=== PATIENT | female | born 1950 | race Caucasian/White ===

== ENCOUNTER 2017-12-29 12:23 | Day surgery (SDC) | payer MEDICARE, OTHER, SELFPAY ==
[2017-12-29] VITALS (7 sets, daily range): BP systolic 95–150; BP diastolic 60–76; PULSE 62–93; RESP 16–18; TEMP 36.1–36.2; O2SAT 93–99; BMI 21.2
--- NOTE | 2017-12-29 13:07 | SUR.PREOP ---
pt stopped supplements 5 days ago
[2017-12-29] MEDS: SODIUM CHLORIDE 0.9% 1,000 ML 42 ML IV (13:08)
--- NOTE | 2017-12-29 13:51 | PM.HP.1 ---
History of Present Illness Date Patient Seen: 12/29/17 Time Patient Seen: 13:51 Chief complaint: [id number] Narrative: Colorectal cancer screening Patient History Family & Social History Social History: household members none Meds Home Medications Medication Instructions Recorded Confirmed Type hydrocortisone 2.5 % TOPICAL PRN #0 02/25/12 12/29/17 History [BIOIDENTICAL PROGEST] 2 mg PO HS #0 10/09/15 12/29/17 History [MAGNESIUM CITRATE] 650 mg PO QDAY #0 10/09/15 History epinephrine 0.3 mg IJ SEE INSTRUCT #2 ea 03/11/17 12/29/17 Rx albuterol sulfate [Proventil HFA] 2 puff INH Q4-6HP PRN 12/29/17 12/29/17 History fexofenadine [Susana Allergy] 30 mg PO BID 12/29/17 12/29/17 History Allergies Allergy/AdvReac Type Severity Reaction Status Date / Time tree nut [TREE NUT] Allergy Severe ANAPHYLACTIC Unverified 12/29/17 13:03 SHOCK, BUT I CAN EAT ALMONDS & PEANUTS Exam Vital Signs (past 8 hours): - 12/29/17 12:55 Temperature 97.0 F L Pulse Rate 67 Respiratory Rate 18 Blood Pressure 150/76 H Pulse Oximetry 99 Oxygen Delivery Method Room Air Narrative Exam Narrative: Oropharynx free of lesion Chest clear to auscultation percussion Cardiac exam reveals no S3 or murmur Assessment & Plan Plan: Assessment/Plan Narrative: Colorectal cancer screening need for colonoscopy
--- NOTE | 2017-12-29 14:01 | PM.OP.ENDO ---
Operative Date/Time/Diagnoses Date of procedure: 12/29/17 Time of procedure: 14:01 Pre-op diagnosis: See indication and findings Post-op diagnosis: same Procedure & Clinicians Study performed: Colonoscopy Same procedure as scheduled: Yes Indications: Screening Surgeon: Sintia Humphrey Procedure Notes Procedure in detail: After informed consent was obtained the patient was placed on left lateral decubitus position. The video colonoscope was introduced the rectum slowly advanced to the cecum. On slow withdrawal mucosa was carefully examined. Scope was removed. The patient tolerated the procedure well. Blood loss none Complications none Sedation: Fentanyl 150 mcg Versed 7 mg IV titration Total sedation time 20 min Findings 1. Mild melanosis in the left colon. 2. Otherwise negative colonoscopy to cecum Patient will need follow-up colonoscopy in 10 years.
[2017-12-29] MEDS: MIDAZOLAM 5 MG/5 ML VIAL IV (14:32)
[2017-12-29] MEDS: fentaNYL 250 MCG/5 ML INJ IV (14:32)
== END 2017-12-29 15:30 ==
LOC: ENDO 12:26
PROVIDERS: Family Provider Physician Assistant; PCP Physician Assistant; Visit Provider Internal Medicine Gastroenterology
PROC: 0DJD8ZZ Inspection of Lower Intestinal Tract, Via Natural or Artificial Opening Endoscopic (ICD-10-PCS; CPT 45378; principal; 2017-12-29 13:30)
DX: Z12.11 Encounter for screening for malignant neoplasm of colon (principal)
CPT/HCPCS: G0121; J2250; J3010

== ENCOUNTER → 2018-12-13 12:00 | Outpatient (CLI) | payer MEDICARE, OTHER, SELFPAY ==
--- NOTE | 2018-12-13 | DI.MG.S_ITS ---
BILATERAL DIGITAL SCREENING MAMMOGRAM 3D/2D WITH CAD: 12/13/2018 CLINICAL: Routine screening. Family history of breast cancer. Comparison is made to exams dated: 12/17/2016 mammogram, 11/22/2015 mammogram, and 09/13/2012 mammogram - [facility]. There are scattered fibroglandular elements in both breasts. Current study was also evaluated with a Computer Aided Detection (CAD) system. There are benign vascular calcifications in both breasts. No significant masses, calcifications, or other findings are seen in either breast. There has been no significant interval change. IMPRESSION: There is no mammographic evidence of malignancy. A 1 year screening mammogram is recommended. This exam was interpreted at Station ID: [id number]. NOTE: For mammograms, a report in lay terms will be sent to the patient. Approximately 15% of breast malignancies will not be visualized mammographically. In the management of a palpable breast mass, a negative mammogram must not discourage biopsy of a clinically suspicious lesion. Electronically Signed By: Elvie jimenez/vanessa:12/13/2018 12:36:41 letter sent: Normal Exam ACR BI-RADS Category 2: Benign Finding(s) 3342F
== END ==
PROVIDERS: Family Provider Physician Assistant; PCP Physician Assistant; Visit Provider Physician Assistant
DX: Z12.31 Encounter for screening mammogram for malignant neoplasm of breast (principal); Z80.3 Family history of malignant neoplasm of breast; Z13.820 Encounter for screening for osteoporosis; M85.88 Other specified disorders of bone density and structure, other site; Z78.0 Asymptomatic menopausal state; Z87.891 Personal history of nicotine dependence
CPT/HCPCS: 77063; 77067; 77080

== ENCOUNTER → 2020-10-29 08:02 | Outpatient (CLI) | payer MEDICARE, OTHER, SELFPAY ==
[2020-10-29 09:20] LABS: COVID19 -Nasal RAPID Negative (Negative)
== END ==
PROVIDERS: Family Provider Physician Assistant; PCP Nurse Practitioner Family; Referring Provider Physician Assistant; Visit Provider Physician Assistant
DX: Z20.822 Contact with and (suspected) exposure to COVID-19 (principal); J02.9 Acute pharyngitis, unspecified; R51.9 Headache, unspecified
CPT/HCPCS: 87635

== ENCOUNTER → 2021-02-21 10:38 | Outpatient (CLI) | payer MEDICARE, OTHER, SELFPAY ==
--- NOTE | 2021-02-21 | DI.MG.S_ITS ---
BILATERAL DIGITAL SCREENING MAMMOGRAM 3D/2D WITH CAD: 02/21/2021 CLINICAL: Routine screening. Family history of breast cancer. Comparison is made to exams dated: 12/13/2018 mammogram, 12/17/2016 mammogram, and 11/22/2015 mammogram - [facility]. There are scattered fibroglandular elements in both breasts. Current study was also evaluated with a Computer Aided Detection (CAD) system. There is a benign mass in the right breast. There also are benign vascular calcifications in both breasts. No significant masses, calcifications, or other findings are seen in either breast. There has been no significant interval change. IMPRESSION: BENIGN There is no mammographic evidence of malignancy. A 1 year screening mammogram is recommended. This exam was interpreted at Station ID: [id number]. NOTE: For mammograms, a report in lay terms will be sent to the patient. Approximately 15% of breast malignancies will not be visualized mammographically. In the management of a palpable breast mass, a negative mammogram must not discourage biopsy of a clinically suspicious lesion. Electronically Signed By: Renan plaza/vanessa:02/21/2021 12:46:45 letter sent: Normal Exam ACR BI-RADS Category 2: Benign Finding(s) 3342F
== END ==
PROVIDERS: Family Provider Physician Assistant; Referring Provider Nurse Practitioner Family; Visit Provider Nurse Practitioner Family
DX: Z12.31 Encounter for screening mammogram for malignant neoplasm of breast (principal); Z80.3 Family history of malignant neoplasm of breast
CPT/HCPCS: 77063; 77067

== ENCOUNTER → 2021-05-15 09:11 | Outpatient (CLI) | payer MEDICARE, OTHER, SELFPAY ==
[2021-05-15 10:25] LABS: Add Manual Diff / Slide Review NO; Basophils Absolute Auto 100 /uL (0-100); Basophils Percent Auto 1.3 % (0-2); Eosinophils Absolute Auto 100 /uL (0-450); Eosinophils Percent Auto 2.1 % (2-4); Hematocrit 39.6 % (36-46); Hemoglobin 13.1 g/dL (12.0-16.0); Lymphocytes Absolute Auto 2000 /uL (1100-4500); Lymphocytes Percent Auto 36.2 % (25-40); Mean Corpuscular HGB Conc 33.2 % (30-36); Mean Corpuscular Volume 93.5 fL (80-100); Monocytes Absolute Auto 300 /uL (0-900); Monocytes Percent Auto 5.2 % (3-14); Neutrophils Absolute Auto 3100 /uL (1500-7000); Neutrophils Percent Auto 55.2 % (50-75); Platelet Count 306 X10^3/uL (150-400); Red Blood Cell Count 4.23 X10^6/uL (4.0-5.2); Red Cell Distribution Width 12.2 % (11.6-14.8); White Blood Cell Count 5.7 X10^3/uL (4.5-11.0)
[2021-05-15 10:39] LABS: Alanine Aminotransferase 26 IU/L (<35); Albumin 4.6 g/dL (3.5-5.0); Albumin Globulin Ratio 1.4 (1.0-2.8); Alkaline Phosphatase 61 U/L (38-126); Aspartate Aminotransferase 36 IU/L (14-36); BUN Creatinine Ratio 26.9 (6-22); Bilirubin Total 0.5 mg/dL (0.2-1.3); Blood Urea Nitrogen 18 mg/dL (7-17); Calcium 9.7 mg/dL (8.4-10.2); Carbon Dioxide 26 mmol/L (22-32); Chloride 107 mmol/L (98-107); Cholesterol 223 mg/dL (140-199); Estimated Glomerular Filt Rate > 60.0 mL/min (>60); Globulin 3.3 g/dL (1.7-4.1); Glucose 108 mg/dL (80-110); HDL Cholesterol 54 mg/dL (40-60); HEMOLYSIS 28 (0-50); LDL Cholesterol Calculated 143 mg/dL (<100); Potassium 4.1 mmol/L (3.4-5.1); Sodium 137 mmol/L (137-145); Total Protein 7.9 g/dL (6.3-8.2); Triglycerides 128 mg/dL (35-150)
== END ==
PROVIDERS: Family Provider Physician Assistant; PCP Family Medicine; Referring Provider Family Medicine; Visit Provider Family Medicine
DX: E78.5 Hyperlipidemia, unspecified (principal); N95.2 Postmenopausal atrophic vaginitis; L43.9 Lichen planus, unspecified; L85.3 Xerosis cutis; J45.909 Unspecified asthma, uncomplicated
CPT/HCPCS: 36415; 80053; 80061; 84443; 85025

== ENCOUNTER → 2021-10-27 09:56 | Outpatient (CLI) | payer MEDICARE, OTHER, SELFPAY ==
--- NOTE | 2021-10-27 09:59 | DI.RAD.S_ITS ---
PROCEDURE: XR CHEST 2V INDICATIONS: asthma, covid jessica, chronic cough, crackles left base, atel? TECHNIQUE: 2 views of the chest were acquired. COMPARISON: [facility], , CHEST 2 VIEW, 06/16/2006, 15:56. FINDINGS: Surgical changes and devices: None. Lungs and pleura: Lungs are clear. No pleural effusions or pneumothorax. Mediastinum: Mediastinal contours are normal. Heart size is normal. Bones and chest wall: No suspicious bony abnormalities. Soft tissues appear unremarkable. IMPRESSION: No acute radiographic abnormality. Dictated by: Matthew García M.D. on 10/27/2021 at 10:59 Approved by: Matthew García M.D. on 10/27/2021 at 11:00
== END ==
PROVIDERS: Family Provider Physician Assistant; PCP Family Medicine; Referring Provider Pediatrics; Visit Provider Pediatrics
DX: J45.909 Unspecified asthma, uncomplicated (principal); R05.3 Chronic cough; U09.9 Post COVID-19 condition, unspecified
CPT/HCPCS: 71046

== ENCOUNTER → 2022-06-26 09:51 | Outpatient (CLI) | payer MEDICARE, OTHER, SELFPAY ==
--- NOTE | 2022-06-26 09:53 | DI.RAD.S_ITS ---
PROCEDURE: XR HIP W PEL IF DONE RAJNI MIN 4V INDICATIONS: pain TECHNIQUE: AP pelvis with lateral view(s) of the both hip(s). COMPARISON: None. FINDINGS: Bones: No fractures or dislocations. Pelvic ring appears intact. No suspicious bony lesions. Soft tissues: The visualized bowel gas pattern is normal. No suspicious soft tissue calcifications. IMPRESSION: Mild bilateral hip DJD. Dictated by: Jonathon Gifford M.D. on 06/26/2022 at 11:52 Approved by: Jonathon Gifford M.D. on 06/26/2022 at 11:53
== END ==
PROVIDERS: Family Provider Physician Assistant; PCP Family Medicine; Referring Provider Family Medicine; Visit Provider Family Medicine
DX: M25.552 Pain in left hip (principal); M16.0 Bilateral primary osteoarthritis of hip
CPT/HCPCS: 73522

== ENCOUNTER → 2023-02-23 16:57 | Outpatient (CLI) | payer MEDICARE, OTHER, SELFPAY ==
--- NOTE | 2023-02-23 | DI.MG.S_ITS ---
BILATERAL DIGITAL SCREENING MAMMOGRAM 3D/2D WITH CAD: 02/23/2023 CLINICAL: Routine screening. Family history of breast cancer. Comparison is made to exams dated: 02/21/2021 mammogram, 12/13/2018 mammogram, and 12/17/2016 mammogram - [facility]. There are scattered areas of fibroglandular density in both breasts (category b / 25%-50% glandular tissue). Current study was also evaluated with a Computer Aided Detection (CAD) system. There is a benign mass in the right breast. There also are benign calcifications in the left breast. Additionally, there are benign vascular calcifications in both breasts. Additionally, there also are benign post operative findings in the right breast. No significant masses, calcifications, or other findings are seen in either breast. There has been no significant interval change. IMPRESSION: BENIGN There is no mammographic evidence of malignancy. A 1 year screening mammogram is recommended. Based on the Tyrer Cuzick model (a risk assessment model) the patient's lifetime risk is 11.7% and her 10 year risk is 7.5%. According to the ACR, ACS, and NCCN guidelines, an annual breast MRI exam along with mammogram is recommended if the patient's lifetime risk is 20% or greater. This exam was interpreted at Station ID: [id number]. NOTE: For mammograms, a report in lay terms will be sent to the patient. Approximately 15% of breast malignancies will not be visualized mammographically. In the management of a palpable breast mass, a negative mammogram must not discourage biopsy of a clinically suspicious lesion. Electronically Signed By: Jonathon Gifford M.D. [facility]/:02/24/2023 15:55:41 letter sent: Normal Exam ACR BI-RADS Category 2: Benign Finding(s) 3342F
== END ==
PROVIDERS: Family Provider Physician Assistant; PCP Family Medicine; Referring Provider Family Medicine; Visit Provider Family Medicine
DX: Z12.31 Encounter for screening mammogram for malignant neoplasm of breast (principal); Z80.3 Family history of malignant neoplasm of breast
CPT/HCPCS: 77063; 77067

== ENCOUNTER → 2023-03-02 13:23 | Outpatient (CLI) | payer MEDICARE, OTHER, SELFPAY ==
--- NOTE | 2023-03-02 13:27 | DI.RAD.S_ITS ---
PROCEDURE: XR WRIST RT MIN 3V INDICATIONS: right and left wrist pain TECHNIQUE: 3 views of the wrist were acquired. COMPARISON: None. FINDINGS: Bones: No fractures or dislocations. 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 Decreased osseous mineralization. No suspicious bony lesions. Soft tissues: No suspicious soft tissue calcifications. IMPRESSION: No acute bony abnormality. 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 Dictated by: Kelby Cordova M.D. on 03/03/2023 at 9:11 Approved by: Kelby Cordova M.D. on 03/03/2023 at 9:12
--- NOTE | 2023-03-02 13:27 | DI.RAD.S_ITS ---
PROCEDURE: XR WRIST LT MIN 3V INDICATIONS: right and left wrist pain TECHNIQUE: 3 views of the wrist were acquired. COMPARISON: [facility], CR, XR WRIST RT MIN 3V, 03/02/2023, 14:32. FINDINGS: Bones: No fractures or dislocations. 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 Decreased osseous mineralization. No suspicious bony lesions. Soft tissues: No suspicious soft tissue calcifications. IMPRESSION: No acute bony abnormality. 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 Dictated by: Kelby Cordova M.D. on 03/03/2023 at 9:12 Approved by: Kelby Cordova M.D. on 03/03/2023 at 9:13
== END ==
PROVIDERS: Family Provider Physician Assistant; PCP Family Medicine; Referring Provider Naturopath; Visit Provider Naturopath
DX: M25.531 Pain in right wrist (principal); M25.532 Pain in left wrist
CPT/HCPCS: 73110

== ENCOUNTER → 2023-04-28 06:47 | Outpatient (CLI) | payer MEDICARE, OTHER, SELFPAY ==
--- NOTE | 2023-04-28 06:48 | DI.US.S_ITS ---
PROCEDURE: US SOFT TISSUE HEAD AND NECK INDICATIONS: lt side of face swollen gland TECHNIQUE: Real-time scanning was performed of the neck region of interest, with image documentation. COMPARISON: None. FINDINGS: Unremarkable soft tissue at the area of concern in left face. Muscular and fascial planes are maintained. Unremarkable vascularity. IMPRESSION: Unremarkable soft tissue ultrasound Approved by: Erich Ayala M.D. on 04/28/2023 at 18:22
== END ==
LOC: US 06:47
PROVIDERS: Family Provider Physician Assistant; PCP Family Medicine; Referring Provider Family Medicine; Visit Provider Family Medicine
DX: R59.9 Enlarged lymph nodes, unspecified (principal)
CPT/HCPCS: 76536

== ENCOUNTER 2024-04-08 08:58 | Emergency (ER) | payer MEDICARE, OTHER, SELFPAY ==
--- NOTE | 2024-04-08 08:59 | ED_ITS ---
HPI - SOB/Dyspnea General Chief Complaint: Shortness of Breath/Dyspnea Stated Complaint: sent from [facility], SOB congestion Time Seen by Provider: 04/08/24 08:59 History of Present Illness HPI Narrative: Patient past medical history of asthma comes into the ED from home for evaluation of asthma exacerbation. States that she normally only gets asthma exacerbations whenever she gets sick, states that she was having a chest congestion started proximally 5 days ago states that she took a home COVID test which was negative but had persistent wheezing shortness of breath went to the walk-in clinic and was told to come here to the ED for further evaluation treatment. She denies any actual chest tightness chest pain she denies any other symptoms as headache visual disturbances nausea vomiting abdominal pain or any other GI/ symptoms time. No recent travel no known sick contacts Related Data Home Medications Medication Instructions Recorded Confirmed Berberine PO 10/10/20 01/14/24 COQ10 PO 10/10/20 01/14/24 Curcum-eval PO 10/10/20 01/14/24 Fish Oil PO 10/10/20 01/14/24 K2-7D3 PO 10/10/20 01/14/24 Multi Vitamin PO 10/10/20 01/14/24 Probiotic PO 10/10/20 01/14/24 Quercetin PO 10/10/20 01/14/24 Vitamin E PO 10/10/20 01/14/24 nac acetalyLCysteine PO 10/10/20 01/14/24 progesterone micronized (bulk) 100 ea miscellaneous 04/08/24 04/08/24 % powder Previous Rx's Medication Instructions Recorded Oral Appliance #1 ea 04/28/21 epinephrine 0.3 mg/0.3 mL 0.3 mg (0.3 mL) SUBCUT SEE 04/26/23 injection, auto-injector INSTRUCT #2 ea albuterol sulfate 90 mcg/actuation 2 puff inhalation Q4-6HP PRN Cold 05/04/23 aerosol inhaler (Proventil HFA) Symptoms #8.5 grams beclomethasone dipropionate 80 2 inh inhalation BID #10.6 grams 05/04/23 mcg/actuation HFA breath activated aerosol (Qvar RediHaler) albuterol sulfate 90 mcg/actuation 3 inh inhalation Q4-6H PRN 04/08/24 breath activated powder inhaler shortness of breath or wheezing #1 ea prednisone 20 mg tablet 40 mg (2 x 20 mg) PO BID 5 days 04/08/24 #20 tabs Allergies Allergy/AdvReac Type Severity Reaction Status Date / Time tree nut [TREE NUT] Allergy Severe ANAPHYLACTIC Verified 04/08/24 09:14 SHOCK, BUT I CAN EAT ALMONDS & PEANUTS Review of Systems Review of Systems Narrative: General: Denies fever, chills, weight loss HEENT: Denies headache, eye drainage, eye irritation, head trauma, sore throat, voice change Cardiovascular: Denies any chest pain, palpitations, shortness of breath, tachycardia Respiratory: Positive shortness breath, cough, wheeze GI/: Denies any abdominal pain, nausea, vomiting, diarrhea, bright red blood per rectum, melanotic stools, urinary frequency, urinary retention, dysuria, hematuria MSK: Denies any joint pain, muscle pains, swelling Skin: Denies any rashes, lesions, discoloration Neuro: Denies any headache, lightheadedness, dizziness, fainting, weakness Psych: Denies SI/HI Patient History Medical History (Updated 04/08/24 @ 10:28 by Justus Dukes DO) Right elbow pain Flexor carpi ulnaris tendinitis Piriformis muscle pain Groin pain, chronic, left Costochondritis, acute Short leg syndrome, left, acquired Hip pain Dupuytren's contracture of left hand Chronic pain of right lower extremity Acute low back pain Active asthma Post-COVID chronic cough Somatic dysfunction of lower extremity Left thigh pain Acute thoracic back pain Acute sore throat Upper extremity somatic dysfunction Segmental and somatic dysfunction of rib cage Bilateral wrist pain Head pain Chronic left-sided thoracic back pain Sacral region somatic dysfunction Pelvic somatic dysfunction Lumbar region somatic dysfunction Segmental and somatic dysfunction of abdomen and other regions Thoracic region somatic dysfunction Back stiffness Neck stiffness Cervical somatic dysfunction Cranial somatic dysfunction Left-sided temporomandibular joint pain-dysfunction syndrome Dry skin Lichen planus Obstructive sleep apnea, adult (Unknown) Primary insomnia (Unknown) Fatigue due to sleep pattern disturbance Excessive daytime sleepiness (Unknown) Hypertension, essential, benign Upper respiratory infection Wrist pain Snoring Left ankle sprain Nut allergy Family history of cardiac disorder Family history of diabetes mellitus in mother Social History (Updated 11/15/23 @ 10:38 by Nighat Morris LPN) marital status: household members: none occupational status: other (retired) Smoking Status: Former smoker Smoking Status: Former smoker (1 pack/week for limited time 40 years ago) Exam Narrative Exam Narrative: General: Cooperative, comfortable, well-developed, not in acute distress HEENT: Normocephalic, atraumatic, PERRLA, normal sclera, eyelids normal, Neck: Active full range of motion, atraumatic Chest: Normal to inspection, negative crepitus, no overlying erythema ecchymosis Respiratory: Patient coughing on exam, expiratory wheezes bilaterally anterior- posterior diffuse, however patient is speaking full sentences protecting airway stridor no voice change no trismus Cardiology: Regular rate rhythm negative gallop, murmur, rubs GI/: Normal to inspection, soft, nonrigid, no tenderness to palpation, exam deferred MSK: Full range of active range of motion of all 4 extremities, atraumatic Skin: No rashes lesions noted Neuro: Alert awake oriented x3, moves all 4 extremities spontaneously, cranial nerves intact, able to answer all questions appropriately follows commands appropriately Psych: Cooperative, negative suicidal or homicidal ideations Initial Vital Signs Initial Vital Signs: Vital Signs Pulse Rate 98 H 04/08/24 09:01 Pulse Oximetry 92 04/08/24 09:01 Course Orders Ordered: ED Orders 04/08/24 09:02 CXR [XR chest 1V] Stat 04/08/24 09:20 BMP [Basic Metabolic Panel] Stat CBC Auto Diff [Complete Blood Count AUTO DIFF] Stat Covid-19 + FLU A/B + RSV - PCR Stat Discontinued Medications Albuterol (Albuterol 2.5 Mg/3 Ml Neb (Adult)) 2.5 mg INH NOW ONE Stop: 04/08/24 09:01 Last Admin: 04/08/24 09:20 Dose: 2.5 mg Documented By: QUENTIN Albuterol/Ipratropium (Albuterol/Ipratropium 3 Ml Ampul) 3 ml INH NOW ONE Stop: 04/08/24 09:01 Last Admin: 04/08/24 09:20 Dose: 3 ml Documented By: QUENTIN Magnesium Sulfate (Magnesium Sulfate) 2 gm in 50 mls @ 150 mls/hr IV NOW ONE Stop: 04/08/24 09:19 Last Infusion: 04/08/24 09:52 Dose: Infused Documented By: RB Co-signed By: LILLIAM Admin: 04/08/24 09:27 Dose: 150 mls/hr Documented By: LILLIAM Co-signed By: DAMIEN Methylprednisolone (Methylprednisolone 125 Mg/2 Ml Vial) 125 mg IV NOW ONE Stop: 04/08/24 09:01 Last Admin: 04/08/24 09:27 Dose: 125 mg Documented By: LILLIAM Vital Signs Vital signs: Vital Signs - 8 hr 04/08/24 09:01 04/08/24 09:02 04/08/24 09:02 Temperature Pulse Rate 98 H 93 H Respiratory Rate Blood Pressure 152/71 H Pulse Oximetry 92 94 Oxygen Delivery Method 04/08/24 09:11 04/08/24 09:20 04/08/24 09:30 Temperature 98.4 F Pulse Rate 94 H 84 86 Respiratory Rate 22 20 Blood Pressure 152/71 H Pulse Oximetry 93 98 96 Oxygen Delivery Method Room Air Room Air 04/08/24 09:30 Temperature Pulse Rate 89 Respiratory Rate 20 Blood Pressure Pulse Oximetry 98 Oxygen Delivery Method Room Air MDM - SOB/Dyspnea Differential Diagnosis Differential diagnosis: Likely other (Pneumonia, COVID, flu, asthma exacerbation) Lab Data 04/08/24 09:20 04/08/24 09:20 Labs: Lab Results 04/08/24 Range/Units 09:20 WBC 6.4 (4.5-11.0) X10^3/uL RBC 4.03 (4.0-5.2) X10^6/uL Hgb 12.7 (12.0-16.0) g/dL Hct 37.7 (36-46) % MCV 93.4 (80-100) fL MCH 31.6 (26-34) PG MCHC 33.8 (30-36) % RDW 12.4 (11.6-14.8) % Plt Count 227 (150-400) X10^3/uL Neut % (Auto) 75.6 H (50-75) % Lymph % (Auto) 16.1 L (25-40) % Lares % (Auto) 6.9 (3-14) % Eos % (Auto) 0.7 L (2-4) % Baso % (Auto) 0.7 (0-2) % Neut # (Auto) 4800 (9919-0613) /uL Lymph # (Auto) 1000 L (1444-1734) /uL Lares # (Auto) 400 (0-900) /uL Eos # (Auto) 0 (0-450) /uL Baso # (Auto) 0 (0-100) /uL Sodium 134 L (137-145) mmol/L Potassium 3.8 (3.4-5.1) mmol/L Chloride 103 (98-107) mmol/L Carbon Dioxide 20 L (22-32) mmol/L BUN 19 H (7-17) mg/dL Creatinine 0.80 (0.52-1.04) mg/dL Estimated GFR > 60 (>60) mL/min BUN/Creatinine Ratio 23.8 H (6-22) Glucose 109 (80-110) mg/dL Calcium 9.5 (8.4-10.2) mg/dL SARS-CoV-2 (PCR) Negative (Negative) Influenza A (RT-PCR) Flu a positive H (NEGATIVE) Influenza B (RT-PCR) Flu b negative (NEGATIVE) RSV (PCR) Negative (Negative) Imaging Data Chest x-ray: Radiologist's Impression: [address] [address] XRay Report Signed Patient: Magdalena Mendez MR#: [id number] : 1950 Acct:[id number] Age/Sex: 73 / F Date of Service: 04/08/24 Loc: ED Accession Number: [id number] Procedure: XR chest 1V Ordering Provider: Justus Dukes D.O. PROCEDURE: XR CHEST 1V INDICATIONS: cough TECHNIQUE: One view of the chest was acquired. COMPARISON: [facility], , XR CHEST 2V, 10/27/2021, 10:00. FINDINGS: Surgical changes and devices: None. Lungs and pleura: Lungs are clear. No pleural effusions or pneumothorax. Mediastinum: Mediastinal contours appear normal. Heart size is normal. Bones and chest wall: No suspicious bony lesions. Overlying soft tissues appear unremarkable. IMPRESSION: No acute cardiopulmonary abnormality is seen. MDM Narrative Medical decision making narrative: 73-year-old female with a history of asthma presenting for asthma exacerbation. Has been ongoing and intermittent since Wednesday, went to the walk-in clinic but instructed to come into the ED for further evaluation treatment. Upon initial evaluation patient is speaking full sentences protecting airway however diffuse expiratory wheezes in all lung egan, patient was given Solu-Medrol, magnesium, albuterol, DuoNeb, chest x-ray was also performed. Patient found to be flu A positive Chest x-ray did not show any consolidation concerning for pneumonia. Patient with significant improvement of symptoms after administration of medications, not requiring any supplemental oxygen, patient feels safe going home with outpatient follow up she will be discharged home with albuterol inhaler as well as steroids informed to follow up with primary care doctor verbalized understanding of the screws being discharged home with outpatient follow up Discharge Plan Departure Patient Disposition: Home Clinical Impression: Asthma exacerbation, Influenza A Instructions: DI for Asthma -- Adult Activity Restrictions/Additional Instructions: Please read the discharge instructions sheet carefully and bring all papers to all doctor follow-up visits, as it may contain information that your doctor may want to see. Disease processes change and evolve, if your symptoms worsen or if you develop any new symptoms that are concerning to you please return for evaluation. Your evaluation today does not show any evidence of any life- threatening/serious illnesses requiring admission to the hospital or surgery. Please follow-up with your doctor for re-evaluation in approximately 1 day. Seek immediate medical attention for any worrisome symptoms. *If you do not have a primary care provider please contact the [facility] Resource line at [phone]. They will ask some questions about your medical history and help get you set up with a doctor in the community. Prescriptions: New prednisone 20 mg tablet 40 mg PO BID 5 Days Qty: 20 0RF albuterol sulfate 90 mcg/actuation aerosol powdr breath activated 3 inh inhalation Q4-6H PRN (Reason: shortness of breath or wheezing) Qty: 1 2RF No Action progesterone micronized (bulk) 100 % powder miscellaneous Patient Comments: [NO ORIGINAL SIG] (DME) Oral Appliance See Rx Instructions .Route .MEDSUPPLY Qty: 1 0RF Rx Instructions: Oral Appliance for Obstructive Sleep Apnea, Mild epinephrine 0.3 mg/0.3 mL auto-injector 0.3 mg subcut SEE INSTRUCT Qty: 2 1RF Rx Instructions: nut allergy albuterol sulfate [Proventil HFA] 90 mcg/actuation HFA aerosol inhaler 2 puff inhalation Q4-6HP PRN (Reason: Cold Symptoms) Qty: 8.5 2RF Qvar RediHaler 80 mcg/actuation HFA aerosol breath activated 2 inh inhalation BID Qty: 10.6 3RF Rx Instructions: usually used every day during allergy & asthma season for patient, or, at minimum, over perhaps the next 2 weeks as try to overcome current flare Fish Oil PO Probiotic PO nac acetalyLCysteine PO K2-7D3 PO Multi Vitamin PO COQ10 PO Curcum-eval PO Berberine PO Quercetin PO Vitamin E PO Referrals: Leon Estevez DO [Primary Care Provider] - Stand Alone Forms: Patient Portal/API/Survey
[2024-04-08 09:01] VITALS: PULSE 98; O2SAT 92
[2024-04-08 09:02] VITALS: BP 152/71; PULSE 93; O2SAT 94
--- NOTE | 2024-04-08 09:02 | DI.RAD.S_ITS ---
PROCEDURE: XR CHEST 1V INDICATIONS: cough TECHNIQUE: One view of the chest was acquired. COMPARISON: [facility], CR, XR CHEST 2V, 10/27/2021, 10:00. FINDINGS: Surgical changes and devices: None. Lungs and pleura: Lungs are clear. No pleural effusions or pneumothorax. Mediastinum: Mediastinal contours appear normal. Heart size is normal. Bones and chest wall: No suspicious bony lesions. Overlying soft tissues appear unremarkable. IMPRESSION: No acute cardiopulmonary abnormality is seen. Dictated by: Jonathon Gifford M.D. on 04/08/2024 at 10:18 Approved by: Jonathon Gifford M.D. on 04/08/2024 at 10:19
[2024-04-08 09:11] VITALS: BP 152/71; PULSE 94; RESP 22; TEMP 36.9; O2SAT 93; BMI 22.1
[2024-04-08 09:20] VITALS: PULSE 84; RESP 20; O2SAT 98
[2024-04-08] MEDS: ALBUTEROL 2.5 MG/3 ML NEB (ADULT) INH (09:20)
[2024-04-08] MEDS: ALBUTEROL/IPRATROPIUM 3 ML AMPUL INH (09:20)
[2024-04-08] MEDS: MAGNESIUM SULFATE 2 GM/50 ML PIGGYBACK IV (09:27)
[2024-04-08] MEDS: methylPREDNISolone 125 MG/2 ML VIAL IV (09:27)
[2024-04-08 09:30] VITALS: PULSE 86; PULSE 89; RESP 20; O2SAT 96; O2SAT 98
[2024-04-08 09:31] LABS: Add Manual Diff / Slide Review NO; Basophils Absolute Auto 0 /uL (0-100); Basophils Percent Auto 0.7 % (0-2); Eosinophils Absolute Auto 0 /uL (0-450); Eosinophils Percent Auto 0.7 % (2-4); Hematocrit 37.7 % (36-46); Hemoglobin 12.7 g/dL (12.0-16.0); Lymphocytes Absolute Auto 1000 /uL (1100-4500); Lymphocytes Percent Auto 16.1 % (25-40); Mean Corpuscular HGB Conc 33.8 % (30-36); Mean Corpuscular Hemoglobin 31.6 PG (26-34); Mean Corpuscular Volume 93.4 fL (80-100); Monocytes Absolute Auto 400 /uL (0-900); Monocytes Percent Auto 6.9 % (3-14); Neutrophils Absolute Auto 4800 /uL (1500-7000); Neutrophils Percent Auto 75.6 % (50-75); Platelet Count 227 X10^3/uL (150-400); Red Blood Cell Count 4.03 X10^6/uL (4.0-5.2); Red Cell Distribution Width 12.4 % (11.6-14.8); White Blood Cell Count 6.4 X10^3/uL (4.5-11.0)
[2024-04-08 09:42] LABS: BUN Creatinine Ratio 23.8 (6-22); Blood Urea Nitrogen 19 mg/dL (7-17); Calcium 9.5 mg/dL (8.4-10.2); Carbon Dioxide 20 mmol/L (22-32); Chloride 103 mmol/L (98-107); Estimated Glomerular Filt Rate > 60 mL/min (>60); Glucose 109 mg/dL (80-110); HEMOLYSIS < 15 (0-50); Potassium 3.8 mmol/L (3.4-5.1); Sodium 134 mmol/L (137-145)
[2024-04-08 10:00] LABS: Influenza A - CEPHEID Flu A POSITIVE (NEGATIVE); Influenza B - CEPHEID Flu B NEGATIVE (NEGATIVE); Respiratory Syncytial Virus Negative (Negative)
[2024-04-08 10:05] LABS: COVID-19 CEPHEID 4-PLEX PCR Negative (Negative)
--- NOTE | 2024-04-08 10:12 | RT ---
pt rosendo jenkins well, on room air with no distress noted.
--- NOTE | 2024-04-08 10:13 | RT ---
pt rosendo neb tx well, slight exp wheeze noted with improvement per pt.
[2024-04-08 10:42] VITALS: BP 148/68; PULSE 83; RESP 18; O2SAT 94
== END 2024-04-08 10:43 | disposition home or self-care (01) ==
PROVIDERS: Emergency Provider Student in an Organized Health Care Education/Training Program; Family Provider Physician Assistant; PCP Family Medicine
DX: J45.901 Unspecified asthma with (acute) exacerbation (principal); J10.1 Influenza due to other identified influenza virus with other respiratory manifestations; R06.02 Shortness of breath; Z86.16 Personal history of COVID-19; I10 Essential (primary) hypertension; G47.33 Obstructive sleep apnea (adult) (pediatric)
CPT/HCPCS: 0241U; 36415; 71045; 80048; 85025; 94640; 96365; 96375; 99284; J2919; J3475; J7613

== ENCOUNTER 2024-04-10 17:49 | Emergency (ER) | payer MEDICARE, OTHER, SELFPAY ==
[2024-04-10] VITALS (9 sets, daily range): BP systolic 128–155; BP diastolic 64–79; PULSE 72–96; RESP 12–33; TEMP 37; O2SAT 90–95; BMI 22.4
--- NOTE | 2024-04-10 18:24 | EKG_ITS ---
[address] [address] Test Date: 2024-04-10 Pat Name: Magdalena Mendez Department: [facility] Room: Gender: Female Customer Trainer: RAKESH : 1950 Requested By: Order Number: [id number] Reading MD: Justus Parmar Measurements Intervals [place] Rate: 76 P: 25 GA: 112 QRS: 33 QRSD: 66 T: 43 QT: 366 QTc: 411 Interpretive Statements Normal sinus rhythm Electronically Signed On 04-12-2024 23:44:38 PST by Justus Parmar
--- NOTE | 2024-04-10 18:24 | DI.RAD.S_ITS ---
PROCEDURE: XR CHEST 1V INDICATIONS: Shortness of breath TECHNIQUE: One view of the chest was acquired. COMPARISON: [facility], [facility], XR CHEST 1V, 04/08/2024, 9:09. [facility], CR, XR CHEST 2V, 10/27/2021, 10:00. FINDINGS: Surgical changes and devices: Cholecystectomy clips Lungs and pleura: No dense airspace disease or pleural effusions. Mediastinum: Normal heart size, unchanged Bones and chest wall: Degenerative changes IMPRESSION: No acute radiographic abnormality on this single view study. Dictated by: Matthew García M.D. on 04/10/2024 at 18:55 Approved by: Matthew García M.D. on 04/10/2024 at 18:55
[2024-04-10] MEDS: ALBUTEROL/IPRATROPIUM 3 ML AMPUL INH (18:46)
[2024-04-10 18:51] LABS: Add Manual Diff / Slide Review NO; Basophils Absolute Auto 100 /uL (0-100); Basophils Percent Auto 0.3 % (0-2); Eosinophils Absolute Auto 0 /uL (0-450); Hematocrit 38.5 % (36-46); Hemoglobin 12.8 g/dL (12.0-16.0); Lymphocytes Absolute Auto 1000 /uL (1100-4500); Lymphocytes Percent Auto 6.3 % (25-40); Mean Corpuscular HGB Conc 33.1 % (30-36); Mean Corpuscular Volume 93.7 fL (80-100); Monocytes Absolute Auto 900 /uL (0-900); Monocytes Percent Auto 5.8 % (3-14); Neutrophils Absolute Auto 13400 /uL (1500-7000); Neutrophils Percent Auto 87.6 % (50-75); Platelet Count 328 X10^3/uL (150-400); Red Blood Cell Count 4.11 X10^6/uL (4.0-5.2); Red Cell Distribution Width 12.6 % (11.6-14.8); White Blood Cell Count 15.3 X10^3/uL (4.5-11.0)
[2024-04-10 18:57] LABS: INR 0.8 (0.9-1.3); Prothrombin Time 9.4 SECONDS (9.4-12.5)
[2024-04-10 19:01] LABS: Albumin 4.5 g/dL (3.5-5.0); Albumin Globulin Ratio 1.3 (1.0-2.8); Alkaline Phosphatase 69 U/L (38-126); Aspartate Aminotransferase 68 IU/L (14-36); BUN Creatinine Ratio 31.9 (6-22); Bilirubin Total 0.5 mg/dL (0.2-1.3); Blood Urea Nitrogen 23 mg/dL (7-17); Calcium 9.3 mg/dL (8.4-10.2); Carbon Dioxide 20 mmol/L (22-32); Chloride 106 mmol/L (98-107); Estimated Glomerular Filt Rate > 60 mL/min (>60); Globulin 3.6 g/dL (1.7-4.1); Glucose 150 mg/dL (80-110); Sodium 136 mmol/L (137-145); Total Protein 8.1 g/dL (6.3-8.2)
[2024-04-10 19:02] LABS: Lactate (Lactic Acid) 2.4 mmol/L (0.7-2.1)
[2024-04-10 19:14] LABS: NT-proBNP (BNP-Adult 18+) 229 pg/mL (<125); Troponin I < 0.012 ng/mL (0.01-0.034)
[2024-04-10 19:16] LABS: Alanine Aminotransferase 51 IU/L (<35); HEMOLYSIS 123 (0-50); Potassium 4.8 mmol/L (3.4-5.1)
[2024-04-10] MEDS: ALBUTEROL 2.5 MG/3 ML NEB (ADULT) INH (19:24)
--- NOTE | 2024-04-10 19:47 | ED_ITS ---
HPI - SOB/Dyspnea General Chief Complaint: Shortness of Breath/Dyspnea Stated Complaint: sob, rtrn from 04/08/24 Time Seen by Provider: 04/10/24 19:46 Source: patient Mode of arrival: Ambulatory Limitations: no limitations History of Present Illness HPI Narrative: Patient is a 73-year-old female history of asthma diagnosed with influenza a 2 days ago presenting today with increasing shortness of breath. She has been on prednisone twice a day, and she has been using her albuterol inhaler every 4 hours 3 puffs. She reports that she had a peak flow meter at home she was not getting above 200 and was needing her albuterol very regular and feeling like she just could not take a deep breath in. Not really having any sort of chest pain or fever. She has been drinking fluid and eating broth. She feels like she is doing well in that regard. She has since received a DuoNeb and an albuterol and reports significant improvement since she was riding Related Data Home Medications Medication Instructions Recorded Confirmed Berberine PO 10/10/20 01/14/24 COQ10 PO 10/10/20 01/14/24 Curcum-eval PO 10/10/20 01/14/24 Fish Oil PO 10/10/20 01/14/24 K2-7D3 PO 10/10/20 01/14/24 Multi Vitamin PO 10/10/20 01/14/24 Probiotic PO 10/10/20 01/14/24 Quercetin PO 10/10/20 01/14/24 Vitamin E PO 10/10/20 01/14/24 nac acetalyLCysteine PO 10/10/20 01/14/24 progesterone micronized (bulk) 100 ea miscellaneous 04/08/24 04/08/24 % powder Previous Rx's Medication Instructions Recorded Oral Appliance #1 ea 04/28/21 epinephrine 0.3 mg/0.3 mL 0.3 mg (0.3 mL) SUBCUT SEE 04/26/23 injection, auto-injector INSTRUCT #2 ea albuterol sulfate 90 mcg/actuation 2 puff inhalation Q4-6HP PRN Cold 05/04/23 aerosol inhaler (Proventil HFA) Symptoms #8.5 grams beclomethasone dipropionate 80 2 inh inhalation BID #10.6 grams 05/04/23 mcg/actuation HFA breath activated aerosol (Qvar RediHaler) albuterol sulfate 90 mcg/actuation 3 inh inhalation Q4-6H PRN 04/08/24 breath activated powder inhaler shortness of breath or wheezing #1 ea albuterol sulfate 90 mcg/actuation 3 inh inhalation Q4-6H PRN 04/08/24 breath activated powder inhaler shortness of breath or wheezing #1 ea prednisone 20 mg tablet 40 mg (2 x 20 mg) PO BID 5 days 04/08/24 #20 tabs Allergies Allergy/AdvReac Type Severity Reaction Status Date / Time tree nut [TREE NUT] Allergy Severe ANAPHYLACTIC Verified 04/08/24 09:14 SHOCK, BUT I CAN EAT ALMONDS & PEANUTS Patient History Medical History (Updated 04/10/24 @ 20:04 by Cherri Quintanilla DO) Right elbow pain Flexor carpi ulnaris tendinitis Piriformis muscle pain Groin pain, chronic, left Costochondritis, acute Short leg syndrome, left, acquired Hip pain Dupuytren's contracture of left hand Chronic pain of right lower extremity Acute low back pain Active asthma Post-COVID chronic cough Somatic dysfunction of lower extremity Left thigh pain Acute thoracic back pain Acute sore throat Upper extremity somatic dysfunction Segmental and somatic dysfunction of rib cage Bilateral wrist pain Head pain Chronic left-sided thoracic back pain Sacral region somatic dysfunction Pelvic somatic dysfunction Lumbar region somatic dysfunction Segmental and somatic dysfunction of abdomen and other regions Thoracic region somatic dysfunction Back stiffness Neck stiffness Cervical somatic dysfunction Cranial somatic dysfunction Left-sided temporomandibular joint pain-dysfunction syndrome Dry skin Lichen planus Obstructive sleep apnea, adult (Unknown) Primary insomnia (Unknown) Fatigue due to sleep pattern disturbance Excessive daytime sleepiness (Unknown) Hypertension, essential, benign Upper respiratory infection Wrist pain Snoring Left ankle sprain Nut allergy Family history of cardiac disorder Family history of diabetes mellitus in mother Social History (Updated 11/15/23 @ 10:38 by Nighat Morris LPN) marital status: household members: none occupational status: other Smoking Status: Former smoker Smoking Status: Former smoker Exam Initial Vital Signs Initial Vital Signs: Vital Signs Temperature 98.6 F 04/10/24 18:17 Pulse Rate 90 04/10/24 18:17 Respiratory Rate 24 04/10/24 18:17 Blood Pressure 155/68 H 04/10/24 18:17 Pulse Oximetry 90 L 04/10/24 18:17 Oxygen Delivery Method Room Air 04/10/24 18:17 GENERAL: Alert pleasant well-appearing 73-year-old female and in no acute distress. HEENT: Head atraumatic,EOMI, pupils reactive, face symmetric, moist mucous membranes CARDIOVASCULAR: Regular rate and rhythm without murmurs, rubs or gallops. RESPIRATORY: Slight wheeze no conversational dyspnea no rales or rhonchi ABDOMEN: Soft, nontender. Normoactive bowel sounds all 4 quadrants. No guarding or rebound. EXTREMITIES: Normal range of motion, no clubbing or edema. Neurovascularly intact NEUROLOGICAL: Alert and oriented x4.Normal gait and speech. Cranial nerves II through XII grossly intact. SKIN: Warm, dry, no laceration, no petechiae, no rashes or lesions. Course Orders Ordered: Discontinued Medications Albuterol (Albuterol 2.5 Mg/3 Ml Neb (Adult)) 2.5 mg INH NOW ONE Stop: 04/10/24 19:20 Last Admin: 04/10/24 19:24 Dose: 2.5 mg Documented By: KAMINI Albuterol/Ipratropium (Albuterol/Ipratropium 3 Ml Ampul) 3 ml INH NOW ONE Stop: 04/10/24 18:44 Last Admin: 04/10/24 18:46 Dose: 3 ml Documented By: KAMINI Vital Signs Vital signs: Vital Signs - 8 hr 04/10/24 18:17 Temperature 98.6 F Pulse Rate 90 Respiratory Rate 24 Blood Pressure 155/68 H Pulse Oximetry 90 L Oxygen Delivery Method Room Air MDM - SOB/Dyspnea Lab Data 04/10/24 18:36 04/10/24 18:36 Labs: Lab Results 04/10/24 Range/Units 18:36 WBC 15.3 H (4.5-11.0) X10^3/uL RBC 4.11 (4.0-5.2) X10^6/uL Hgb 12.8 (12.0-16.0) g/dL Hct 38.5 (36-46) % MCV 93.7 (80-100) fL MCH 31.0 (26-34) PG MCHC 33.1 (30-36) % RDW 12.6 (11.6-14.8) % Plt Count 328 (150-400) X10^3/uL Neut % (Auto) 87.6 H (50-75) % Lymph % (Auto) 6.3 L (25-40) % [place] % (Auto) 5.8 (3-14) % Eos % (Auto) 0.0 L (2-4) % Baso % (Auto) 0.3 (0-2) % Neut # (Auto) 42478 H (1128-6484) /uL Lymph # (Auto) 1000 L (7049-7375) /uL [place] # (Auto) 900 (0-900) /uL Eos # (Auto) 0 (0-450) /uL Baso # (Auto) 100 (0-100) /uL PT 9.4 (9.4-12.5) SECONDS INR 0.8 L (0.9-1.3) Sodium 136 L (137-145) mmol/L Potassium 4.8 (3.4-5.1) mmol/L Chloride 106 (98-107) mmol/L Carbon Dioxide 20 L (22-32) mmol/L BUN 23 H (7-17) mg/dL Creatinine 0.72 (0.52-1.04) mg/dL Estimated GFR > 60 (>60) mL/min BUN/Creatinine Ratio 31.9 H (6-22) Glucose 150 H (80-110) mg/dL Lactate 2.4 H (0.7-2.1) mmol/L Calcium 9.3 (8.4-10.2) mg/dL Total Bilirubin 0.5 (0.2-1.3) mg/dL AST 68 H (14-36) IU/L ALT 51 H (<35) IU/L Alkaline Phosphatase 69 (38-126) U/L Troponin I < 0.012 (0.01-0.034) ng/mL NT-Pro-B Natriuret Pep 229 H (<125) pg/mL Total Protein 8.1 (6.3-8.2) g/dL Albumin 4.5 (3.5-5.0) g/dL Globulin 3.6 (1.7-4.1) g/dL Albumin/Globulin Ratio 1.3 (1.0-2.8) Imaging Data Chest x-ray: Radiologist's Impression: PROCEDURE: XR CHEST 1V INDICATIONS: Shortness of breath TECHNIQUE: One view of the chest was acquired. COMPARISON: [facility], CR, XR CHEST 1V, 04/08/2024, 9:09. [facility], CR, XR CHEST 2V, 10/27/2021, 10:00. FINDINGS: Surgical changes and devices: Cholecystectomy clips Lungs and pleura: No dense airspace disease or pleural effusions. Mediastinum: Normal heart size, unchanged Bones and chest wall: Degenerative changes IMPRESSION: No acute radiographic abnormality on this single view study. Dictated by: Matthew García M.D. on 04/10/2024 at 18:55 Approved by: Matthew García M.D. on 04/10/2024 at 18:55 ECG Data Attestation: I personally reviewed and interpreted this ECG as follows: Prior ECG tracings: not available for review Interpretation: Normal sinus rhythm rate 76 WA interval 112 QRS 66 QTC 411 MDM Narrative Medical decision making narrative: MDM CC: Shortness of breath Complicating co-morbidities: Asthma Medical records reviewed: Recent visit 04/08/2024 diagnosed with influenza a Differential considered: Pneumonia asthma exacerbation congestive heart failure Exam documented above, pertinent findings include: 73-year-old female well- appearing after DuoNeb and albuterol with slight expiratory wheeze no significant conversational dyspnea no lower extremity edema Lab Test results independently reviewed as above. Pertinent findings: WBC 15 Lactate 2.4 CMP sodium 136 potassium 4.8 chloride 106 bicarb 20 BUN 23 creatinine 0.72 glucose 150 BNP 229 troponin negative Independently reviewed EKG as above Sinus rhythm no ischemia no priors to compare Imaging studies independently reviewed: Chest x-ray no pneumonia or congestive heart failure Treatments: Albuterol and DuoNeb Re-evaluations: Breathing significantly better after breathing treatment Discussion: 73-year-old female history of asthma recently diagnosed with influenza presents today with increasing shortness of breath. She has been using her inhaler every 4 hours and on prednisone. She was feeling significantly better after breathing treatments. X-ray does not show any evidence of pneumonia O2 sat is now 93-94% on room air at rest. She does have leukocytosis but I suspect this is from prednisone use. No signs or symptoms of congestive heart failure. She improved significantly with DuoNeb so PE seems unlikely. She has a appointment with a primary care provider tomorrow to discuss nebulizer at home Discussion of staying in the hospital for frequent nebulizer treatments however she would really like to go home she was close outpatient follow-up no longer hypoxic Discharge Plan Departure Patient Disposition: Home Clinical Impression: Asthma, Influenza A Instructions: DI for Asthma -- Adult Activity Restrictions/Additional Instructions: *You have been diagnosed with asthma exacerbation with influenza *What to do: At this time please continue your albuterol you may by a nebulizer for home use if needed *Continue to take medications as directed Continue and finish prednisone as directed *Follow up with your primary care provider in 2-3 days or call [phone] Follow up with PCP tomorrow *Return to ER if you should have increasing chest pain, increasing albuterol use increasing shortness of or any new, worsening or concerning symptoms Prescriptions: No Action progesterone micronized (bulk) 100 % powder miscellaneous Patient Comments: [NO ORIGINAL SIG] (DME) Oral Appliance See Rx Instructions .Route .MEDSUPPLY Qty: 1 0RF Rx Instructions: Oral Appliance for Obstructive Sleep Apnea, Mild epinephrine 0.3 mg/0.3 mL auto-injector 0.3 mg subcut SEE INSTRUCT Qty: 2 1RF Rx Instructions: nut allergy albuterol sulfate [Proventil HFA] 90 mcg/actuation HFA aerosol inhaler 2 puff inhalation Q4-6HP PRN (Reason: Cold Symptoms) Qty: 8.5 2RF Qvar RediHaler 80 mcg/actuation HFA aerosol breath activated 2 inh inhalation BID Qty: 10.6 3RF Rx Instructions: usually used every day during allergy & asthma season for patient, or, at minimum, over perhaps the next 2 weeks as try to overcome current flare Fish Oil PO Probiotic PO nac acetalyLCysteine PO K2-7D3 PO Multi Vitamin PO COQ10 PO Curcum-eval PO Berberine PO Quercetin PO Vitamin E PO prednisone 20 mg tablet 40 mg PO BID 5 Days Qty: 20 0RF albuterol sulfate 90 mcg/actuation aerosol powdr breath activated 3 inh inhalation Q4-6H PRN (Reason: shortness of breath or wheezing) Qty: 1 2RF albuterol sulfate 90 mcg/actuation aerosol powdr breath activated 3 inh inhalation Q4-6H PRN (Reason: shortness of breath or wheezing) Qty: 1 2RF Referrals: Leon Estevez DO [Primary Care Provider] - Stand Alone Forms: Patient Portal/API/Survey
[2024-04-10 20:18] LABS: Reflexed Lactate in 2 Hours Y
== END 2024-04-10 20:49 | disposition home or self-care (01) ==
PROVIDERS: Emergency Provider Emergency Medicine; Family Provider Physician Assistant; PCP Family Medicine
DX: J10.1 Influenza due to other identified influenza virus with other respiratory manifestations (principal); J45.909 Unspecified asthma, uncomplicated; I10 Essential (primary) hypertension; Z87.891 Personal history of nicotine dependence
CPT/HCPCS: 36415; 71045; 80053; 83605; 83880; 84484; 85025; 85610; 93005; 94640; 99284; J7613